=== PATIENT | female | born 1955 ===

== ENCOUNTER → 2020-11-07 08:42 | Outpatient (CLI) | payer OTHER, SELFPAY ==
[2020-11-07 10:36] LABS: COVID19 -Nasal RAPID Negative (Negative)
== END ==
PROVIDERS: Family Provider Physician Assistant Medical; PCP Physician Assistant Medical; Visit Provider Surgery
DX: Z20.822 Contact with and (suspected) exposure to COVID-19 (principal)
CPT/HCPCS: 87635; C9803

== ENCOUNTER 2020-11-08 13:38 | Day surgery (SDC) | payer OTHER, SELFPAY ==
[2020-11-08] VITALS (7 sets, daily range): BP systolic 102–154; BP diastolic 55–80; PULSE 67–80; RESP 13–16; TEMP 36.3–36.7; O2SAT 95–100; BMI 21.9
[2020-11-08] MEDS: LACTATED RINGERS 1,000 ML 200 ML IV (14:40)
--- NOTE | 2020-11-08 15:33 | PM.HP.1 ---
History of Present Illness History of Present Illness Date Patient Seen: 11/08/20 Time Patient Seen: 15:33 Chief complaint: SCREENING COLONOSCOPY Narrative: The patient presents for colorectal sreening. Colonoscopy 10 years ago was normal. No personal or family history of colon cancer. On further history denies any recent gastrointestinal symptoms. No nausea, vomiting, abdominal pain, loss of appetite, unexplained weight loss, change in bowel habits, diarrhea, constipation, melena, hematochezia, or bright red blood per rectum. Patient History Medical History (Updated 11/08/20 @ 14:24 by Rosalind Camreon RN) Diabetes Hyperlipemia Hypertension Family & Social History Social History: household members spouse Tobacco & Substance use: Smoking Status Never smoker alcohol intake never Substance Use Type does not use Meds Home Medications and Allergies Home Medications Medication Instructions Recorded Confirmed Type alendronate 70 mg tablet (Fosamax) 70 mg PO QWEEK #0 09/14/16 11/08/20 History metformin 500 mg tablet,extended 500 mg PO BID #0 09/14/16 11/08/20 History release 24 hr (Glucophage XR) metoprolol tartrate 50 mg tablet 50 mg PO BID #0 09/14/16 11/08/20 History amlodipine 5 mg tablet 5 mg PO DAILY PRN 11/08/20 11/08/20 History atorvastatin 40 mg tablet 40 mg PO BEDTIME 11/08/20 11/08/20 History meloxicam 7.5 mg tablet 7.5 mg PO DAILY PRN 11/08/20 11/08/20 History Allergies Allergy/AdvReac Type Severity Reaction Status Date / Time lisinopril [LISINOPRIL] Allergy Unknown Cough Verified 11/08/20 14:19 Review of Systems Review of Systems ROS: Yes All systems reviewed with the patient and are negative except as otherwise documented Exam Vital Signs (past 8 hours): - 11/08/20 14:38 Temperature 97.4 F L Pulse Rate 70 Respiratory Rate 14 Blood Pressure 154/80 H Pulse Oximetry 100 Oxygen Delivery Method Room Air Narrative Exam Narrative: GENERAL-well developed adult woman, no acute distress HEENT-no scleral icterus, hearing intact NECK-no JVD, trachea midline CVS- regular rate, no peripheral edema RESP-unlabored respiratory effort, no audible wheezing GI-soft, nontender nondistended MSK-no cyanosis or clubbing, extremities without deformity SKIN-warm, dry NEURO-alert and oriented, no focal deficits PYSCH-Appropriate mood and affect Assessment & Plan Assessment & Plan narrative: The patient requires colorectal screening and colonoscopy is recommended. Technical details were discussed. Risks, benefits, alternatives explained. Risks including but not limited to myocardial infarction, aspiration, bleeding, pain, missed lesion, incomplete examination, need for further radiographic studies, colonic perforation, and need for major abdominal surgery were discussed. All questions were answered to their satisfaction, and they are in agreement with this plan.
[2020-11-08] MEDS: fentaNYL 250 MCG/5 ML INJ IV (15:36)
[2020-11-08] MEDS: MIDAZOLAM 5 MG/5 ML VIAL IV (15:36)
--- NOTE | 2020-11-08 15:55 | PM.OP.ENDO ---
Operative Date/Time/Diagnoses Date of procedure: 11/08/20 Time of procedure: 15:55 Pre-op diagnosis: Screening colonoscopy Post-op diagnosis: same Procedure & Clinicians Study performed: Colonoscopy Same procedure as scheduled: Yes Indications: Screening colonoscopy Surgeon: Carlos Mccallum Procedure Notes Procedure in detail: Medications: Conscious sedation using 4mg IV midazolam and 125mcg IV of fentanyl The history and physical was performed/updated and the patient is ASA class is 2. The procedure was discussed in detail with the patient. Potential risks complications including infection, bleeding, missed diagnosis, perforation, need for surgery, and were explained. Their questions were answered and informed consent was obtained. Patient was brought to the procedure room and placed standard monitoring equipment. The patient's vital signs were monitored continuously throughout the entire procedure. Prior to starting time-out was performed. The patient was placed in the left lateral recumbent position. Procedural sedation was administered. Examination began with a thorough inspection of the perianal area there was no evidence of fissures, fistulae, external hemorrhoids or cutaneous malignancy. The colonoscopy scope was then placed into the anal canal and was advanced to the cecum, which was identified by the ileocecal valve, the appendiceal orifice and the confluence of the taenia. The scope was then slowly withdrawn examining colon thoroughly in all directions, irrigating it of any residual stool. 1. No masses or polyps 2. Sigmoid diverticulosis 3. Grade 1 internal hemorrhoids The patient tolerated the procedure well. They will be discharged once criteria are met. The prep was of good/excellent quality. The withdrawl time was 7 minutes. The sedation time was 19minutes. Impression: Normal colonoscopy Post-procedure Recommendations: Colonscopy in 10 years Disposition: same day surgery
--- NOTE | 2020-11-08 16:46 | SUR.PHASEII ---
Stable post op, belly remained soft, tolerated fluids and ready to go, ride called, opt left in stable condition.
== END 2020-11-08 16:47 | disposition home or self-care (01) ==
PROVIDERS: Family Provider Physician Assistant Medical; PCP Physician Assistant Medical; Referring Provider Surgery; Visit Provider Surgery
PROC: 0DJD8ZZ Inspection of Lower Intestinal Tract, Via Natural or Artificial Opening Endoscopic (ICD-10-PCS; CPT 45378; principal; 2020-11-08 15:15)
DX: Z12.11 Encounter for screening for malignant neoplasm of colon (principal); K57.30 Diverticulosis of large intestine without perforation or abscess without bleeding; K64.0 First degree hemorrhoids
CPT/HCPCS: 45378; 82962; 99152; J2250; J3010

== ENCOUNTER → 2021-06-03 09:49 | Outpatient (CLI) | payer OTHER, SELFPAY ==
[2021-06-03 11:36] LABS: COVID19 -Nasal RAPID Negative (Negative)
== END ==
PROVIDERS: Family Provider Physician Assistant Medical; PCP Physician Assistant Medical; Visit Provider Family Medicine Sleep Medicine
DX: Z20.822 Contact with and (suspected) exposure to COVID-19 (principal)
CPT/HCPCS: 87635; C9803

== ENCOUNTER 2021-06-04 06:54 | Day surgery (SDC) | payer OTHER, SELFPAY ==
[2021-06-04 07:08] VITALS: BP 189/89; PULSE 59; RESP 14; TEMP 36.1; O2SAT 100; BMI 22.4
[2021-06-04] MEDS: PROPARACAINE 0.5% OPHTH SOL 2 DROPS EYE-OP (07:26)
[2021-06-04] MEDS: CATARACT EYE COMPOUND (10 DROPS/SYRINGE) 3 DROPS EYE-OP (07:27)
[2021-06-04 07:38] VITALS: BMI 22.4
--- NOTE | 2021-06-04 08:34 | PM.PREOP ---
Pre-operative Note Interval Note History & Physical reviewed/Exam performed by Physician: Yes Changes to H&P: No Addendum Addendum Note: There are no non surgical alternatives to the patients condition. Deterioration of the patient's condition is expected without treatment. Delay may result in more complex future surgery
--- NOTE | 2021-06-04 08:35 | PM.OP.1 ---
Operative Date/Time/Diagnoses Pre-op diagnosis: Nuclear Cataract Left eye Post-op diagnosis: same Procedure & Clinicians Same procedure as scheduled: Yes Surgeon: Renzo Munguia Anesthesia Type: MAC +/- and Sedation Operative Notes Procedure in detail: Patient brought to the operating suite. Tetracaine drops placed in the left eye. Patient was prepped and draped in sterile manner. Wire lid speculum was placed in the eye. Betadine drops were placed on the eye. This was irrigated. Lidocaine jelly was placed on the eye. A paracentesis port was created with a side-port blade. 0.1 mL 1% preservative free lidocaine was injected into the anterior chamber. The anterior chamber was deepened with viscoelastic. 2.6 mm keratome was used to create a temporal clear corneal incision. Cystotome and Utrata forceps were used to create continuous tear capsulorrhexis. Balanced salt solution was used to hydro dissect the nucleus. The phacoemulsification handpiece was inserted and the nucleus was removed using the stop and chop technique. The irrigation aspiration handpiece was inserted and the remaining cortex was removed. Anterior chamber was deepened with viscoelastic. An Harrison DIB00 intraocular lens with a power of 21.0 was injected into the capsular bag. Irrigation aspiration handpiece was inserted and the remaining viscoelastic was removed. Incision was hydrated with balanced salt solution and found to be leak free with pressure with Weck-Marci sponges. 0.1 mL Vigamox injected anterior chamber. 0.3 mL Kenalog 10 mg was injected subconjunctivally. Lid speculum was removed. The patient left the operating room in excellent condition. Complications: none Post-operative Condition: stable Disposition: same day surgery
[2021-06-04] MEDS: HYALURONATE SODIUM 30 MG-10 MG/ML SYRINGES 1 BOX INTRAOCULA (08:52)
[2021-06-04] MEDS: LIDOCAINE 2% (GLYDO) 6 ML GEL TOP (08:52)
[2021-06-04] MEDS: TETRACAINE 0.5% OPHTH DROPS 4 ML 2 DROPS EYE-OP (08:52)
[2021-06-04] MEDS: MOXIFLOXACIN INJ 4 MG/0.8 ML VIAL 0.5 MG EYE-OP (08:52)
[2021-06-04] MEDS: PHENYLEPHRINE/LIDOCAINE VIAL (OR) 0.2 ML EYE-OP (08:53)
[2021-06-04] MEDS: TRIAMCINOLONE 50 MG/5 ML VIAL INJ (08:53)
[2021-06-04] MEDS: BALANCED SALT IRRIG SOLN NO.2 500 ML, EPINEPHrine 1 MG IRR (08:53)
--- NOTE | 2021-06-04 08:54 | SUR.OPER ---
Supine on eye stretcher, head on extension cradle secured with tape. Arms tucked at sides with blanket. Pillow under knees.
[2021-06-04 09:06] VITALS: BP 162/86; PULSE 62; RESP 14; TEMP 36.2; O2SAT 100
== END 2021-06-04 09:18 | disposition home or self-care (01) ==
PROVIDERS: Family Provider Physician Assistant Medical; PCP Physician Assistant Medical; Referring Provider Ophthalmology; Visit Provider Ophthalmology
PROC: (CPT 66984; principal; 2021-06-04 08:45)
DX: H25.12 Age-related nuclear cataract, left eye (principal); E11.9 Type 2 diabetes mellitus without complications; Z79.84 Long term (current) use of oral hypoglycemic drugs; I10 Essential (primary) hypertension; E78.00 Pure hypercholesterolemia, unspecified
CPT/HCPCS: 66984; J0171; J2250; J3301

== ENCOUNTER → 2021-06-17 11:04 | Outpatient (CLI) | payer OTHER, SELFPAY ==
[2021-06-17 12:58] LABS: COVID19 -Nasal RAPID Negative (Negative)
== END ==
PROVIDERS: Family Provider Physician Assistant Medical; PCP Physician Assistant Medical; Visit Provider Family Medicine Sleep Medicine
DX: Z20.822 Contact with and (suspected) exposure to COVID-19 (principal)
CPT/HCPCS: 87635; C9803

== ENCOUNTER 2021-06-18 06:43 | Day surgery (SDC) | payer OTHER, SELFPAY ==
[2021-06-18] MEDS: PROPARACAINE 0.5% OPHTH SOL 2 DROPS EYE-OP (07:12)
[2021-06-18] MEDS: CATARACT EYE COMPOUND (10 DROPS/SYRINGE) 3 DROPS EYE-OP (07:14)
[2021-06-18 07:18] VITALS: BP 158/85; PULSE 50; RESP 12; TEMP 36.2; O2SAT 100
[2021-06-18 07:19] VITALS: BMI 23.4
--- NOTE | 2021-06-18 08:00 | PM.PREOP ---
Pre-operative Note Interval Note History & Physical reviewed/Exam performed by Physician: Yes Changes to H&P: No Addendum Addendum Note: There are no non surgical alteratives to the patient's condtion. Deterioration of the patient's condition is expected. Delay may result in more complex future surgery.
--- NOTE | 2021-06-18 08:01 | PM.OP.1 ---
Operative Date/Time/Diagnoses Pre-op diagnosis: Nuclear cataract right eye Procedure & Clinicians Procedure: Cataract Surgery Same procedure as scheduled: Yes Surgeon: Renzo Munguia Anesthesia Type: MAC +/- and Sedation Operative Notes Procedure in detail: Patient brought to the operating suite. Tetracaine drops placed in the right eye. Patient was prepped and draped in sterile manner. Wire lid speculum was placed in the eye. Betadine drops were placed on the eye. This was irrigated. Lidocaine jelly was placed on the eye. A paracentesis port was created with a side-port blade. 0.1 mL 1% preservative free lidocaine was injected into the anterior chamber. The anterior chamber was deepened with viscoelastic. 2.6 mm keratome was used to create a temporal clear corneal incision. Cystotome and Utrata forceps were used to create continuous tear capsulorrhexis. Balanced salt solution was used to hydro dissect the nucleus. The phacoemulsification handpiece was inserted and the nucleus was removed using the stop and chop technique. The irrigation aspiration handpiece was inserted and the remaining cortex was removed. Anterior chamber was deepened with viscoelastic. An Harrison DIB00 intraocular lens with a power of 20.5 was injected into the capsular bag. Irrigation aspiration handpiece was inserted and the remaining viscoelastic was removed. Incision was hydrated with balanced salt solution and found to be leak free with pressure with Weck-Marci sponges. 0.1 mL Vigamox injected anterior chamber. 0.3 mL Kenalog 10 mg was injected subconjunctivally. Lid speculum was removed. The patient left the operating room in excellent condition. Complications: none Post-operative Condition: stable Disposition: same day surgery
[2021-06-18] MEDS: MOXIFLOXACIN INJ 4 MG/0.8 ML VIAL 0.5 MG EYE-OP (08:18)
[2021-06-18] MEDS: HYALURONATE SODIUM 30 MG-10 MG/ML SYRINGES 1 BOX INTRAOCULA (08:18)
[2021-06-18] MEDS: PHENYLEPHRINE/LIDOCAINE VIAL (OR) 0.2 ML EYE-OP (08:18)
[2021-06-18] MEDS: BALANCED SALT IRRIG SOLN NO.2 500 ML, EPINEPHrine 1 MG IRR (08:18)
[2021-06-18] MEDS: TRIAMCINOLONE 50 MG/5 ML VIAL INJ (08:18)
[2021-06-18] MEDS: LIDOCAINE 2% (GLYDO) 6 ML GEL TOP (08:19)
[2021-06-18] MEDS: TETRACAINE 0.5% OPHTH DROPS 4 ML 2 DROPS EYE-OP (08:19)
[2021-06-18 08:26] VITALS: BP 99/58; PULSE 50; RESP 12; TEMP 36.6; O2SAT 99
[2021-06-18 08:45] VITALS: BP 102/65; PULSE 49; RESP 12; O2SAT 97
== END 2021-06-18 08:56 | disposition home or self-care (01) ==
LOC: OR 06:44
PROVIDERS: Family Provider Physician Assistant Medical; PCP Physician Assistant Medical; Referring Provider Ophthalmology; Visit Provider Ophthalmology
PROC: (CPT 66984; principal; 2021-06-18 08:15)
DX: H25.11 Age-related nuclear cataract, right eye (principal); E11.9 Type 2 diabetes mellitus without complications; E78.00 Pure hypercholesterolemia, unspecified; I10 Essential (primary) hypertension; Z79.84 Long term (current) use of oral hypoglycemic drugs
CPT/HCPCS: 66984; 82962; J0171; J2250; J3010; J3301